=== PATIENT | female | born 1995 | race Caucasian/White ===

== ENCOUNTER 2020-12-31 16:43 | Inpatient (IN) | payer OTHER, SELFPAY ==
[2020-12-31 17:11] VITALS: BMI 39.4
--- NOTE | 2020-12-31 18:42 | PC.ADMIT ---
Pt is a 25 year old female to male transgender that goes by she/her pronouns sometimes he/him it just depends . Does not go by they/them pronouns. She is a transfer from [facility]. Presenting with SI with a plan to jump off a bridge bystanders witnessed and called police. Has a history of a past suicide attempt and frequent self harm by cutting. Denies any current SI/HI and or AVH. Stated that she has had a decrease in appetite for a long time . Reports that she sleeps well at night, however, will have nightmares . Tox screen positive for marijuana. Medications ordered and obtained by options trader MD. Placed on 15 minute checks. CV signed. Pt verbalized she was okay with a female patient at this time and was told to let staff know if otherwise.
--- NOTE | 2020-12-31 19:26 | PC.NURSE ---
Pt signed a 3-day notice 12/31/20, up on 01/03/21
[2020-12-31 19:32] VITALS: BP 110/65; PULSE 69; TEMP 36.7; O2SAT 98
[2021-01-01] MEDS: Emtricitabin/Tenofovir 200/300 TABLET 1 TAB PO (09:09)
[2021-01-01] MEDS: Sertraline HCL 50 MG TABLET 150 MG PO (09:09)
[2021-01-01 09:56] VITALS: BP 113/66; PULSE 83; TEMP 30; O2SAT 97
--- NOTE | 2021-01-01 17:49 | HO.PSYADMNOT ---
HPI Chief Complaint: Unspecified depressive disorder Sources of Information: patient interviewed, chart reviewed and crisis/core team assessment reviewed HPI Subjective Notes: 3 Day Narrative: Jagdeep is a 25 year-old transgender f-to-m who self presented to ED reporting increased depression, suicidal ideation with plan to jump off bridge. In the ED, utox was negative. On the unit, Jagdeep reports struggling with depression for long time but able to do things she enjoys. Jagdeep reports most recently relationship of 4 years ended and she felt lonely, overwhelmed. Pt reports she thought about jumping off bridge but later decided to ask for help. She reports prior suicide attempt about 10 years ago cut her wrist but no medical attention received nor she disclosed this incident to anyone. Pt reports fair sleep. No hx of VH/AH. Past Psychiatric History: Inpt: none OP: therapist in [place]. awaiting for psych prescriber. Past med trials: sertraline Suicide attempts: cut wrist 7-10 years ago. Medical Evaluation Reviewed: Yes PMFSH Family History: none Social History: Lives alone. Originally from [place]. Substance History: None Diagnostics Vital Signs (24Hr): Vital Signs - 24 hr 12/31/20 19:32 01/01/21 09:56 Temperature 98.0 F 86 F L Pulse Rate 69 83 Blood Pressure 110/65 113/66 Pulse Oximetry 98 97 Body Mass Index 39.4 Meds/Allergies Meds Home Medications Acetaminophen (Acetaminophen 325 Mg Tablet) 650 mg PO Q6H PRN PRN Reason: Headache/Pain Mild Scale (1-3) Al Hydroxide/Mg Hydroxide (Magnesium Hydrox/Alum Hydrox 30 Ml Oral.Susp) 30 ml PO Q6H PRN PRN Reason: Heartburn/Nausea Emtricitabine/Tenofovir (Emtricitabin/Tenofovir 200/300 Tablet) 1 tab PO DAILY [facility] Last Admin: 01/03/21 08:42 Dose: 1 tab Documented by: Hydroxyzine HCl (Hydroxyzine Hcl 25 Mg Tablet) 25 mg PO BEDTIME PRN PRN Reason: Anxiety Magnesium Hydroxide (Milk Of Magnesia 30 Ml Oral.Susp) 30 ml PO DAILY PRN PRN Reason: Constipation Ondansetron HCl (Ondansetron Odt 8 Mg Tab.Rapdis) 8 mg TRANSLINGU Q8H PRN PRN Reason: Nausea Sertraline HCl (Sertraline Hcl 50 Mg Tablet) 150 mg PO DAILY [facility] Last Admin: 01/03/21 08:38 Dose: 150 mg Documented by: Trazodone HCl (Trazodone Hcl 50 Mg Tablet) 50 mg PO BEDTIME PRN PRN Reason: Insomnia Allergies Allergies Allergy/AdvReac Type Severity Reaction Status Date / Time [place] AdvReac Severe Shortness Verified 12/31/20 18:26 of Breath Mental Status Exam Mental Status Exam Narrative: Appearance: casually groomed, fair hygiene, in NAD Behavior: cooperative Psychomotor: no agitation or retardation noted Speech: clear, normal rate/rhythm/volume, spontaneous TP: linear TC: no signs of psychosis Mood: better Affect: constricted but brightens up at times SI/HI: none AH/VH: none Insight/judgment: fair x 2 Memory/cog: alert, oriented x 3. grossly intact to conversational testing. Assessment & Plan Assessment & Plan (1) MDD (major depressive disorder), recurrent episode, moderate: Status: Acute Code(s): F33.1 - Major depressive disorder, recurrent, moderate (2) Borderline personality disorder in adult: Status: Acute Code(s): F60.3 - Borderline personality disorder Assessment and Plan: Jagdeep is a 25 year-old transgender F-to-M (preferred pronoun they) who self presented to ED reporting increased depressed mood, overwhelmed and passive suicidal ideation in context of recent break up with partner of past 4 years. On the unit, Jagdeep denies SI/HI. She reports needed to reconnect with DBT and op services. We discussed risks, benefits and alternative treatment options. She has been on sertraline, she would like to continue on it. PLAN 1. Admit to M5 2. Continue Sertraline 150mg po daily 3. Obtain collateral information 4. Aftercare plan Reason for continued inpatient stay Substantial Risk for: harm to self
[2021-01-02 06:00] VITALS: BP 105/59; PULSE 83; RESP 16; TEMP 36.3; O2SAT 97
[2021-01-02] MEDS: Sertraline HCL 50 MG TABLET 150 MG PO (08:41)
[2021-01-02 08:47] LABS: Cholesterol 170 mg/dL; HDL Cholesterol 34 mg/dL; LDL Cholesterol Calculated 121 mg/dl; Triglycerides 76 mg/dL
[2021-01-02 08:51] LABS: Estimated Average Glucose 100 mg/dL; Hemoglobin A1c % 5.1 %
[2021-01-02 09:07] LABS: Thyroid Stimulating Hormone 0.75 uIU/mL (0.32-4.0)
[2021-01-02 11:10] LABS: Folate 10.4 ng/mL (> or = 4.0); Vitamin B12 205 pg/mL (200-900)
--- NOTE | 2021-01-02 11:15 | HO.PSYCHPN ---
Subjective Subjective Date of Service: 01/03/21 Reason For Visit: Unspecified depressive disorder Subjective Notes: 3 Day Interim History: Pt continues to report feeling less overwhelmed. They reports feeling depressed and lonely. She reports utilizing some DBT skills. They denies suicidal or homicidal ideation. 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 They also want to reconnect with DBT programming and outpatient psychiatric services. She reports sleeping fairly well. No behavioral concerns. They attending assigned groups. Medication Compliance: Yes Side effects from medications: No Attending Groups: Yes Review of Systems Acute medical concerns: No Mental Status Exam Mental Status Exam Narrative: Appearance: casually groomed, fair hygiene, in NAD Behavior: cooperative Psychomotor: no agitation or retardation noted Speech: clear, normal rate/rhythm/volume, spontaneous TP: linear TC: no signs of psychosis Mood: better Affect: constricted but brightens up at times SI/HI: none AH/VH: none Insight/judgment: fair x 2 Memory/cog: alert, oriented x 3. grossly intact to conversational testing. Diagnostics Vital Signs (24Hr): Vital Signs - 24 hr 01/02/21 16:30 01/03/21 06:00 Temperature 98.1 F 96.7 F L Pulse Rate 83 76 Respiratory Rate 16 Blood Pressure 118/58 L 107/66 Pulse Oximetry 97 Body Mass Index 39.4 Labs Labs: Laboratory Results - last 48 hr 01/02/21 01/02/21 01/02/21 08:16 08:16 08:16 Estimat Average Glucose 100 Hemoglobin A1c % 5.1 Triglycerides 76 Cholesterol 170 LDL Cholesterol, Calc 121 HDL Cholesterol 34 Vitamin B12 205 Folate 10.4 TSH 0.75 Medications Medications Current Medications Acetaminophen (Acetaminophen 325 Mg Tablet) 650 mg PO Q6H PRN PRN Reason: Headache/Pain Mild Scale (1-3) Al Hydroxide/Mg Hydroxide (Magnesium Hydrox/Alum Hydrox 30 Ml Oral.Susp) 30 ml PO Q6H PRN PRN Reason: Heartburn/Nausea Emtricitabine/Tenofovir (Emtricitabin/Tenofovir 200/300 Tablet) 1 tab PO DAILY [facility] Last Admin: 01/03/21 08:42 Dose: 1 tab Documented by: Hydroxyzine HCl (Hydroxyzine Hcl 25 Mg Tablet) 25 mg PO BEDTIME PRN PRN Reason: Anxiety Magnesium Hydroxide (Milk Of Magnesia 30 Ml Oral.Susp) 30 ml PO DAILY PRN PRN Reason: Constipation Ondansetron HCl (Ondansetron Odt 8 Mg Tab.Rapdis) 8 mg TRANSLINGU Q8H PRN PRN Reason: Nausea Sertraline HCl (Sertraline Hcl 50 Mg Tablet) 150 mg PO DAILY [facility] Last Admin: 01/03/21 08:38 Dose: 150 mg Documented by: Trazodone HCl (Trazodone Hcl 50 Mg Tablet) 50 mg PO BEDTIME PRN PRN Reason: Insomnia Allergies Allergies Allergy/AdvReac Type Severity Reaction Status Date / Time pineapple AdvReac Severe Shortness Verified 12/31/20 18:26 of Breath Assessment & Plan Assessment & Plan (1) MDD (major depressive disorder), recurrent episode, moderate: Status: Acute Code(s): F33.1 - Major depressive disorder, recurrent, moderate (2) Borderline personality disorder in adult: Status: Acute Code(s): F60.3 - Borderline personality disorder Assessment and Plan: Jagdeep is a 25 year-old transgender F-to-M (preferred pronoun they) who self presented to ED reporting increased depressed mood, overwhelmed and passive suicidal ideation in context of recent break up with partner of past 4 years. On the unit, Jagdeep denies SI/HI. She reports needed to reconnect with DBT and op services. We discussed risks, benefits and alternative treatment options. She has been on sertraline, she would like to continue on it. PLAN 1. Admit to M5 2. Continue Sertraline 150mg po daily 3. Obtain collateral information- had family meeting with parents- they denied imminent safety concerns but want to be support for Jagdeep. 4. Aftercare plan Greater than 50% of the session was spent on counseling and/or coordination of care Reason for contiued inpatient stay Substantial Risk for: stable for discharge
[2021-01-02 16:30] VITALS: BP 118/58; PULSE 83; TEMP 36.7
[2021-01-03 06:00] VITALS: BP 107/66; PULSE 76; RESP 16; TEMP 35.9; O2SAT 97
[2021-01-03] MEDS: Sertraline HCL 50 MG TABLET 150 MG PO (08:38)
[2021-01-03] MEDS: Emtricitabin/Tenofovir 200/300 TABLET 1 TAB PO (08:42)
--- NOTE | 2021-01-03 11:08 | P.DS_ITS ---
DS: Providers Provider Date of Service: 01/03/21 Date of admission: 12/31/20 16:43 Primary care physician: Nonstaff Physician Consults: 12/31/20 18:57 Consult to Hospitalist Routine Consulting Provider: Hospitalist Reason For Exam: admission DS: Diagnosis Discharge Diagnosis (1) MDD (major depressive disorder), recurrent episode, moderate: Status: Acute (2) Borderline personality disorder in adult: Status: Acute DS: Medications Discharge Medications Home Medications: Previous Rx's Medication Instructions Recorded emtricitabine 200 mg-tenofovir 1 tab PO DAILY #14 tab 01/03/21 disoproxil fumarate 300 mg tablet (Truvada) sertraline 50 mg tablet 150 mg PO DAILY #30 tab 01/03/21 trazodone 50 mg tablet 50 mg PO BEDTIME PRN #30 tab 01/03/21 Mental Status Exam Mental Status Exam Narrative: Appearance: casually groomed, fair hygiene, in NAD Behavior: cooperative Psychomotor: no agitation or retardation noted Speech: clear, normal rate/rhythm/volume, spontaneous TP: linear TC: no signs of psychosis Mood: better Affect: constricted but brightens up at times SI/HI: none AH/VH: none Insight/judgment: fair x 2 Memory/cog: alert, oriented x 3. grossly intact to conversational testing. Data Data Completed and Pending Completed studies during hospitalization [Text1]: 01/02/21 01/02/21 01/02/21 08:16 08:16 08:16 Estimat Average Glucose 100 Hemoglobin A1c % 5.1 Triglycerides 76 Cholesterol 170 LDL Cholesterol, Calc 121 HDL Cholesterol 34 Vitamin B12 205 Folate 10.4 TSH 0.75 DS: Summary Hospital Course Hospital Course: Jagdeep is a 25 year-old transgender f-to-m who self presented to ED reporting increased depression, suicidal ideation with plan to jump off bridge. In the ED, utox was negative. On the unit, Jagdeep reports struggling with depression for long time but able to do things she enjoys. Jagdeep reports most recently relationship of 4 years ended and she felt lonely, overwhelmed. Pt reports she thought about jumping off bridge but later decided to ask for help. She reports prior suicide attempt about 10 years ago cut her wrist but no medical attention received nor she disclosed this incident to anyone. Pt reports fair sleep. No hx of VH/AH. Past Psychiatric History: Inpt: none OP: therapist in [place]. awaiting for psych prescriber.? Past med trials: sertraline Suicide attempts: cut wrist 7-10 years ago. Medical Evaluation Reviewed: Yes HOSPITAL COURSE On the unit, jagdeep was initially somewhat guarded. They reported feeling less overwhelmed, less depressed and adamantly denied suicidal ideation. They denied hx of VH/AH. They did not appeared internally preoccupied. They reported suicide attempt in context of recent break up of relationship of 4 years. We discussed risks, benefits and alternative treatment options, Jagdeep declined medication changes stating this episode was in part to recent break up and sertraline for most part helpful. Jagdeep identified DBT skills and OP psychotherapy as useful in the past and wanting to reconnect with services. Family meeting with Jagdeep's parents was held on 01/02- parents denied safety concerns at time of discharge and agree to support Jagdeep in anyway they can. Jagdeep's was visible in the unit, attended assigned groups. Their affect was gradually brighter. There were no episodes of disruptive behaviors nor use of restraints. Status at Discharge Cognitive/behavioral status at discharge: Affect brighter, future oriented. NO SI/HI. Functional status at discharge: independent ambulation Overall status at discharge: patient is progressing back to baseline Time Spent with Patient Time attestation: Total time spent providing and/or coordinating discharge services: Discharge Plan Discharge Patient Disposition: Home, Self-Care Discharge Diagnosis: MDD, recurrent, moderate BPD Referrals: [facility] [Other] - 1 Week (Initial evaluation scheduled for , February 06, 2021 @ 11:30 via [facility] portal. They will send you a link through your portal email address.) [facility] (therapists) [Other] - 01/09/21 3:30 pm (Appointment scheduled for January 09, 2021 @ 3:30 PM IN OFFICE visit with Christine SCHWARTZ her phone number is [phone] ext. [phone]) Physician,Nonstaff [Primary Care Provider] - 1 Week Discharge Medications: New trazodone 50 mg Tablet 50 mg PO BEDTIME PRN (Reason: Insomnia) Qty: 30 RF: 0 sertraline 50 mg Tablet 150 mg PO DAILY Qty: 30 RF: 0 emtricitabine-tenofovir (TDF) [Truvada] 200-300 mg Tablet 1 tab PO DAILY Qty: 14 RF: 0 Discharge Orders: Discharge Order (Routine); Ordered 01/03/21 Ordered By: Marilyn Gardner Diet: regular diet Activity on Discharge: As tolerated Stand Alone Forms: Patient Portal Discharge page, Community Support Care Plan Goals: 1. Maintain mood 2. NO SI/HI Health Concerns: follow up with PCP Plan of Treatment: 1. take medications as prescribed 2. Go to nearest ED or call 911 in event of emergency Assessment: less overwhelmed, less depressed, NO SI.
--- NOTE | 2021-01-03 11:16 | HO.PM.IMCN ---
History of Present Illness Data of Consult Service Date: 01/03/21 Primary Care Provider: Nonstaff Physician HPI Reason for consult: Medical manage 25-year-old transgender from female to male, admitted to stay psychiatric facility for depression, patient offers no medical symptoms, she denies any headache, no dizziness, no chest pain, no other medical issues. Review of Systems Review of Systems: General no headache no dizziness no fever chills. CVS no chest pain, no palpitation. Respiratory no cough no sob, no respiratory distress. Gastrointestinal no nausea no vomiting, no abdominal pain Yes all other systems are reviewed and are negative [facility] Functional capacity: independent ambulation Pertinent family history: Mother has type 2 diabetes mellitus father is healthy has 1 sister with no medical issues. Social History Household Members: None Housing: Apartment Do you presently have visiting nurse or other home services: No Patient Tobacco Use Status: Never used Tobacco Smoked in Last 30 Days: No e-Cigarette/Vaping Use: Never Used Patient Interested in Nicotine Replacement: No Patient Given Instructions on How to Stop Smoking: No Second Hand Smoke Exposure: No Use of substances other than those prescribed or required for medical reasons: Yes Substance Use Type: Marijuana Substance Use Frequency: Occasionally Last Used Substance: Days (ago) Currently Displaying Signs/Symptoms of Drug Intoxication Withdrawal: No Any prior treatment program specific to substance use: No Have you been hit, kicked, punched, or otherwise hurt by someone within the past year? If so, by whom?: No Do you feel safe in your current relationship?: No Is there a partner from a previous relationship who is making you feel unsafe now?: No Are you made to feel afraid or neglected: No Advance Directives: No Advance Directives Information Provided: No Do you have thoughts of harming others: None Do you have a plan to hurt others: No Plan Recently lost weight without trying: Unsure How much weight loss: Unsure Eating poorly because of decreased appetite: No Nutrition screen score: 4 Nutrition Risks: No Nutritional Risk Patient : No : No Poor oral hygiene: No service: No Sexual orientation: refers to self as they and nonbinary Meds Allergies Allergy/AdvReac Type Severity Reaction Status Date / Time pineapple AdvReac Severe Shortness Verified 12/31/20 18:26 of Breath Active Medications: Current Medications Acetaminophen (Acetaminophen 325 Mg Tablet) 650 mg PO Q6H PRN PRN Reason: Headache/Pain Mild Scale (1-3) Al Hydroxide/Mg Hydroxide (Magnesium Hydrox/Alum Hydrox 30 Ml Oral.Susp) 30 ml PO Q6H PRN PRN Reason: Heartburn/Nausea Emtricitabine/Tenofovir (Emtricitabin/Tenofovir 200/300 Tablet) 1 tab PO DAILY [facility] Last Admin: 01/03/21 08:42 Dose: 1 tab Documented by: Hydroxyzine HCl (Hydroxyzine Hcl 25 Mg Tablet) 25 mg PO BEDTIME PRN PRN Reason: Anxiety Magnesium Hydroxide (Milk Of Magnesia 30 Ml Oral.Susp) 30 ml PO DAILY PRN PRN Reason: Constipation Ondansetron HCl (Ondansetron Odt 8 Mg Tab.Rapdis) 8 mg TRANSLINGU Q8H PRN PRN Reason: Nausea Sertraline HCl (Sertraline Hcl 50 Mg Tablet) 150 mg PO DAILY [facility] Last Admin: 01/03/21 08:38 Dose: 150 mg Documented by: Trazodone HCl (Trazodone Hcl 50 Mg Tablet) 50 mg PO BEDTIME PRN PRN Reason: Insomnia Physical Exam Vital Signs and Narrative: Vital Signs: Last Vital Signs Temp 96.7 F L 01/03/21 06:00 Pulse 76 01/03/21 06:00 Resp 16 01/03/21 06:00 BP 107/66 01/03/21 06:00 Pulse Ox 97 01/03/21 06:00 Body Mass Index 39.4 General AxOx3,no acute distress. Neck supple no JVD. CVS regular rate rhythm, Respiratory lungs clear to auscultation, no respiratory distress, no wheeze, no rhonchi. Gastrointestinal abdomen soft, nontender, bowel sounds audible Extremities no clubbing cyanosis or edema. Neuro nonfocal ,speech clear. Skin no rash, facial hair Assessment and Plan (1) Borderline personality disorder in adult: Status: Acute (2) MDD (major depressive disorder), recurrent episode, moderate: Status: Acute 25-year-old female to male transgender [facility] with major depressive disorder as well as history of borderline personality disorder, at present patient denies any medical issues, has no prior history of diabetes, asthma, or other medical diagnoses, is not on any medications at home, will recommend to continue current psychiatric treatment. thank You for allowing us to participate in the care of this patient.
== END 2021-01-03 12:31 | disposition home or self-care (01) | DRG 885 ==
PROVIDERS: Admitting Provider Psychiatry & Neurology Psychiatry; Visit Provider Social Worker
DX: F33.1 Major depressive disorder, recurrent, moderate (principal); R45.851 Suicidal ideations; F60.3 Borderline personality disorder; F64.0 Transsexualism; Z91.51 Personal history of suicidal behavior; Z79.899 Other long term (current) drug therapy
CPT/HCPCS: 36415; 80061; 82607; 82746; 83036; 84443